=== PATIENT | male | born 1975 | race Caucasian/White ===

== ENCOUNTER 2017-12-24 07:00 | Emergency (ER) | payer MEDICARE, OTHER | END 2017-12-24 12:00 | disposition home or self-care (01) | LOC: E/R 07:00 | DX: L97.529 Non-pressure chronic ulcer of other part of left foot with unspecified severity (principal); R40.2142 Coma scale, eyes open, spontaneous, at arrival to emergency department; R40.2362 Coma scale, best motor response, obeys commands, at arrival to emergency department; R40.2252 Coma scale, best verbal response, oriented, at arrival to emergency department; F17.210 Nicotine dependence, cigarettes, uncomplicated | CPT/HCPCS: 73630; 73630-LT; 99283-25 ==

== ENCOUNTER 2018-05-27 19:37 | Inpatient (IN) | payer MEDICARE, OTHER ==
[2018-05-27] MEDS: LORAZEPAM 2 MG INJ IV (20:14)
[2018-05-27] MEDS: CEFEPIME 2GM/50 ML (PMX) 50 ML IVPB (20:17)
[2018-05-27] MEDS: SODIUM CHLORIDE 0.9% 1L BAG IV* (20:19)
[2018-05-27 20:57] LABS: ADD MAN DIFF? NO
[2018-05-27 21:04] LABS: ABNORMAL IP MESSAGE 1; BASOPHILS % 0.1 % (0.0-2.0); EOSINOPHILS # 0.1 10^3/ul (0.0-0.5); HEMATOCRIT 26.3 % (42.0-52.0); HEMOGLOBIN 7.6 g/dl (14.0-18.0); LYMPHOCYTES # 0.9 10^3/ul (0.8-2.9); LYMPHOCYTES % 12.2 % (15.0-51.0); MEAN CORPUSCULAR HGB CONC 28.9 g/dl (32.0-37.0); MEAN CORPUSCULAR VOLUME 65.9 fl (82.0-101.0); MONOCYTE # 0.8 10^3/ul (0.3-0.9); MONOCYTES % 11.1 % (0.0-11.0); NEUTROPHIL # 5.2 10^3/ul (1.6-7.5); NEUTROPHILS % 74.2 % (39.0-77.0); PLATELET COUNT 391 10^3/UL (140-415); POSITIVE DIFF @See below; RED BLOOD COUNT 3.99 10^6/ul (4.70-6.10); RED CELL DISTRIBUTION WIDTH 21.9 % (11.5-14.5)
[2018-05-27 21:23] LABS: INR 1.29; PROTIME 16.2 Sec (11.9-14.9); PT RATIO 1.3
[2018-05-27 21:25] LABS: ANION GAP 6 (5-13); BLOOD UREA NITROGEN 10 mg/dl (7-20); CALCIUM 8.5 mg/dl (8.4-10.2); CARBON DIOXIDE 24 mmol/L (21-31); CHLORIDE 109 mmol/L (97-110); CREATININE 0.59 mg/dl (0.61-1.24); Estimated GFR > 60 mL/min (>60); GLUCOSE 124 mg/dl (70-220); POTASSIUM 3.5 mmol/L (3.5-5.1); SODIUM 139 mmol/L (135-144)
[2018-05-27 21:31] LABS: PARTIAL THROMBOPLASTIN TIME 36.6 Sec (23.0-35.0)
[2018-05-27 21:37] LABS: C-REACTIVE PROTEIN 17.6 mg/dl (0.0-0.9)
[2018-05-27] MEDS: VANCOMYCIN 1 GM (PMX) 250 ML IVPB (21:41)
[2018-05-27 22:25] LABS: ERYTHROCYTE SEDIMENTATION RATE 94 mm/Hr (0-15)
[2018-05-27] MEDS ORDERED: ACETAMINOPHEN 325 MG TAB PO ×2 (22:30→23:30)
[2018-05-27] MEDS ORDERED: ONDANSETRON 4 MG INJ IV (22:30)
[2018-05-27 23:03] LABS: LACTIC ACID 0.6 mmol/L (0.5-2.0)
[2018-05-27] MEDS: GABAPENTIN 400 MG CAP PO (23:30)
[2018-05-27] MEDS ORDERED: HYDROCODONE/APAP (5/325) TAB PO ×2 (23:30)
[2018-05-27] MEDS ORDERED: NACL 0.9% 3 ML SYG IV (23:30)
[2018-05-28 02:16] LABS: LACTIC ACID 0.9 mmol/L (0.5-2.0)
[2018-05-28 06:22] LABS: ADD MAN DIFF? NO
[2018-05-28 06:28] LABS: WHITE BLOOD COUNT 6.2 10^3/ul (4.8-10.8)
[2018-05-28 06:28] LABS: ABNORMAL IP MESSAGE 1; BASOPHILS % 0.2 % (0.0-2.0); EOSINOPHILS # 0.3 10^3/ul (0.0-0.5); EOSINOPHILS % 5.1 % (0.0-7.0); HEMATOCRIT 27.3 % (42.0-52.0); HEMOGLOBIN 7.9 g/dl (14.0-18.0); LYMPHOCYTES # 0.9 10^3/ul (0.8-2.9); LYMPHOCYTES % 13.9 % (15.0-51.0); MEAN CORPUSCULAR HEMOGLOBIN 19.4 pg (29.0-33.0); MEAN CORPUSCULAR HGB CONC 28.9 g/dl (32.0-37.0); MEAN CORPUSCULAR VOLUME 67.1 fl (82.0-101.0); MEAN PLATELET VOLUME 8.3 fl (7.4-10.4); MONOCYTE # 0.7 10^3/ul (0.3-0.9); MONOCYTES % 11.1 % (0.0-11.0); NEUTROPHIL # 4.3 10^3/ul (1.6-7.5); NEUTROPHILS % 69.4 % (39.0-77.0); PLATELET COUNT 365 10^3/UL (140-415); POSITIVE DIFF @See below; RED BLOOD COUNT 4.07 10^6/ul (4.70-6.10); RED CELL DISTRIBUTION WIDTH 22.1 % (11.5-14.5)
[2018-05-28 06:58] LABS: IRON 11 ug/dl (35-150)
[2018-05-28 06:58] LABS: HEMOGLOBIN A1C 5.6 % (0-5.9)
[2018-05-28] MEDS: PANTOPRAZOLE (EC) 40 MG TAB PO (07:00)
[2018-05-28] MEDS ORDERED: NON-FORMULARY/PATIENT OWN MED (Omeprazole* 20 MG) PO (07:00)
[2018-05-28 07:08] LABS: % IRON SATURATION 5 % SAT (22-52); TOTAL IRON BINDING CAPACITY 217 ug/dl (241-421)
[2018-05-28 07:14] LABS: ALANINE AMINOTRANSFERASE 7 IU/L (13-69); ALBUMIN 2.8 g/dl (3.3-4.9); ALBUMIN/GLOBULIN RATIO 0.62; ALKALINE PHOSPHATASE 79 IU/L (42-121); ANION GAP 8 (5-13); ASPARTATE AMINO TRANSFERASE 14 IU/L (15-46); BILIRUBIN,INDIRECT 0.3 mg/dl (0-1.1); BILIRUBIN,TOTAL 0.3 mg/dl (0.2-1.3); BLOOD UREA NITROGEN 7 mg/dl (7-20); CALCIUM 8.6 mg/dl (8.4-10.2); CARBON DIOXIDE 24 mmol/L (21-31); CHLORIDE 110 mmol/L (97-110); CHOL/HDL RATIO 4.8 RATIO; CHOLESTEROL 87 mg/dl (100-200); Estimated GFR > 60 mL/min (>60); GLUCOSE 85 mg/dl (70-220); HDL CHOLESTEROL 18 mg/dl (27-67); LDL CHOLESTEROL,CALCULATED 58 mg/dl; MAGNESIUM 1.8 mg/dl (1.7-2.5); PHOSPHORUS 3.6 mg/dl (2.5-4.9); POTASSIUM 3.3 mmol/L (3.5-5.1); SODIUM 142 mmol/L (135-144); TOTAL PROTEIN 7.3 g/dl (6.1-8.1); TRIGLYCERIDES 53 mg/dl (0-149)
[2018-05-28 07:33] LABS: FERRITIN 75.2 ng/ml (17.9-464.0)
[2018-05-28] MEDS: GABAPENTIN 400 MG CAP PO ×2 (09:00→20:29)
[2018-05-28] MEDS: POTASSIUM CHLORIDE (SR) 20 MEQ TAB PO (09:38)
[2018-05-28] MEDS ORDERED: VANCOMYCIN IV PER PHARMACY XX (10:00)
[2018-05-28] MEDS: HYDROmorphONE 2 MG/ML SYG IV ×2 (13:14→20:29)
[2018-05-28] MEDS: DIPHENHYDRAMINE 50 MG INJ IV ×2 (13:14→22:09)
[2018-05-28] MEDS: RIVAROXABAN 10 MG TABLET PO (13:14)
[2018-05-28] MEDS: PIPER-TAZO 3.375 GM IV (PMX) 100 ML IVPB ×2 (14:04→20:28)
[2018-05-28] MEDS: LORAZEPAM 2 MG INJ IV (15:17)
[2018-05-28] MEDS: VANCOMYCIN 750 MG (PMX) 250 ML IVPB (21:58)
[2018-05-29] MEDS: LORAZEPAM 2 MG INJ IV (00:03)
[2018-05-29] MEDS: VANCOMYCIN 750 MG (PMX) 250 ML IVPB ×3 (00:05→15:50)
[2018-05-29] MEDS: PIPER-TAZO 3.375 GM IV (PMX) 100 ML IVPB ×5 (02:46→23:44)
[2018-05-29] MEDS: HYDROmorphONE 2 MG/ML SYG IV ×6 (02:47→23:47)
[2018-05-29] MEDS: PANTOPRAZOLE (EC) 40 MG TAB PO (06:28)
[2018-05-29] MEDS: DIPHENHYDRAMINE 50 MG INJ IV ×3 (07:36→20:29)
[2018-05-29] MEDS: ONDANSETRON 4 MG INJ IV ×2 (07:36→13:52)
[2018-05-29] MEDS: GABAPENTIN 400 MG CAP PO ×2 (07:53→20:30)
[2018-05-29 08:58] LABS: BLOOD UREA NITROGEN 7 mg/dl (7-20)
[2018-05-29 08:58] LABS: CREATININE 0.49 mg/dl (0.61-1.24)
[2018-05-29 09:04] LABS: VANCOMYCIN,TROUGH 8.6 ug/ml (10.0-20.0)
[2018-05-29] MEDS: RIVAROXABAN 10 MG TABLET PO (10:54)
[2018-05-29] MEDS: RISPERIDONE 2 MG TAB PO ×2 (12:00→20:30)
[2018-05-30] MEDS: VANCOMYCIN 750 MG (PMX) 250 ML IVPB ×3 (00:47→16:58)
[2018-05-30] MEDS: DIPHENHYDRAMINE 50 MG INJ IV ×4 (03:02→20:57)
[2018-05-30] MEDS: HYDROmorphONE 2 MG/ML SYG IV ×7 (03:32→23:34)
[2018-05-30] MEDS: PIPER-TAZO 3.375 GM IV (PMX) 100 ML IVPB ×4 (06:08→23:35)
[2018-05-30] MEDS: PANTOPRAZOLE (EC) 40 MG TAB PO (06:10)
[2018-05-30 08:08] LABS: BLOOD UREA NITROGEN 7 mg/dl (7-20)
[2018-05-30 08:08] LABS: CREATININE 0.62 mg/dl (0.61-1.24)
[2018-05-30 08:11] LABS: VANCOMYCIN,TROUGH 11.9 ug/ml (10.0-20.0)
[2018-05-30] MEDS: GABAPENTIN 400 MG CAP PO ×2 (09:00→20:56)
[2018-05-30] MEDS: RISPERIDONE 2 MG TAB PO ×2 (09:00→20:56)
[2018-05-30] MEDS: RIVAROXABAN 10 MG TABLET PO (09:13)
[2018-05-30] MEDS: DAKINS 0.0125%(1/40) 473 ML SOLUTION TP (12:39)
[2018-05-30] MEDS: POTASSIUM CHLORIDE (SR) 20 MEQ TAB PO (23:35)
[2018-05-31] MEDS: VANCOMYCIN 750 MG (PMX) 250 ML IVPB ×3 (01:27→16:15)
[2018-05-31] MEDS: DIPHENHYDRAMINE 50 MG INJ IV ×4 (03:02→21:01)
[2018-05-31] MEDS: HYDROmorphONE 2 MG/ML SYG IV ×5 (03:29→20:07)
[2018-05-31] MEDS: PIPER-TAZO 3.375 GM IV (PMX) 100 ML IVPB ×3 (07:38→18:45)
[2018-05-31 07:47] LABS: ANION GAP 5 (5-13); BLOOD UREA NITROGEN 14 mg/dl (7-20); CALCIUM 8.9 mg/dl (8.4-10.2); CARBON DIOXIDE 27 mmol/L (21-31); CHLORIDE 107 mmol/L (97-110); CREATININE 0.54 mg/dl (0.61-1.24); Estimated GFR > 60 mL/min (>60); GLUCOSE 95 mg/dl (70-220); POTASSIUM 4.5 mmol/L (3.5-5.1); SODIUM 139 mmol/L (135-144)
[2018-05-31] MEDS: RISPERIDONE 2 MG TAB PO ×2 (09:00→21:00)
[2018-05-31] MEDS: GABAPENTIN 400 MG CAP PO ×2 (09:06→20:06)
[2018-05-31] MEDS: RIVAROXABAN 10 MG TABLET PO (09:06)
[2018-05-31] MEDS: PANTOPRAZOLE (EC) 40 MG TAB PO (09:07)
[2018-05-31] MEDS: DAKINS 0.0125%(1/40) 473 ML SOLUTION TP (10:00)
[2018-06-01] MEDS: HYDROmorphONE 2 MG/ML SYG IV ×7 (00:26→19:59)
[2018-06-01] MEDS: PIPER-TAZO 3.375 GM IV (PMX) 100 ML IVPB ×5 (00:27→23:27)
[2018-06-01] MEDS: VANCOMYCIN 750 MG (PMX) 250 ML IVPB ×3 (01:17→16:07)
[2018-06-01] MEDS: DIPHENHYDRAMINE 50 MG INJ IV ×4 (02:53→21:01)
[2018-06-01] MEDS: PANTOPRAZOLE (EC) 40 MG TAB PO (06:30)
[2018-06-01] MEDS: RIVAROXABAN 10 MG TABLET PO (08:00)
[2018-06-01] MEDS: GABAPENTIN 400 MG CAP PO ×2 (08:00→20:06)
[2018-06-01] MEDS: RISPERIDONE 2 MG TAB PO ×2 (08:01→20:09)
[2018-06-01] MEDS: DAKINS 0.0125%(1/40) 473 ML SOLUTION TP (09:54)
[2018-06-01] MEDS: HALOPERIDOL 5 MG INJ IM (16:01)
[2018-06-01 23:44] LABS: VANCOMYCIN,TROUGH 14.5 ug/ml (10.0-20.0)
[2018-06-02] MEDS: HYDROmorphONE 2 MG/ML SYG IV ×7 (00:15→23:59)
[2018-06-02] MEDS: VANCOMYCIN 750 MG (PMX) 250 ML IVPB ×4 (00:19→23:59)
[2018-06-02] MEDS: DIPHENHYDRAMINE 50 MG INJ IV ×4 (03:03→21:35)
[2018-06-02] MEDS: PIPER-TAZO 3.375 GM IV (PMX) 100 ML IVPB ×2 (06:09→12:06)
[2018-06-02] MEDS: PANTOPRAZOLE (EC) 40 MG TAB PO (06:09)
[2018-06-02 07:36] LABS: CREATININE 0.69 mg/dl (0.61-1.24)
[2018-06-02 07:36] LABS: BLOOD UREA NITROGEN 17 mg/dl (7-20)
[2018-06-02] MEDS: RIVAROXABAN 10 MG TABLET PO (08:08)
[2018-06-02] MEDS: GABAPENTIN 400 MG CAP PO ×2 (08:08→20:10)
[2018-06-02] MEDS: DAKINS 0.0125%(1/40) 473 ML SOLUTION TP (08:18)
[2018-06-02] MEDS: RISPERIDONE 2 MG TAB PO ×2 (09:00→20:11)
[2018-06-02] MEDS ORDERED: AMIKACIN IV PER PHARMACY XX (15:00)
[2018-06-02] MEDS: HYDROmorphONE 1 MG/ML SYG IV (15:01)
[2018-06-02] MEDS: AMIKACIN 900 MG in SOD CHLORIDE 0.9% 100 ML IVPB (18:11)
[2018-06-03] MEDS: DIPHENHYDRAMINE 50 MG INJ IV ×4 (03:32→21:42)
[2018-06-03] MEDS: HYDROmorphONE 2 MG/ML SYG IV ×5 (04:00→21:37)
[2018-06-03] MEDS: PANTOPRAZOLE (EC) 40 MG TAB PO (06:18)
[2018-06-03] MEDS: VANCOMYCIN 750 MG (PMX) 250 ML IVPB ×3 (08:00→15:51)
[2018-06-03] MEDS: GABAPENTIN 400 MG CAP PO ×2 (08:02→21:33)
[2018-06-03] MEDS: RIVAROXABAN 10 MG TABLET PO (08:02)
[2018-06-03] MEDS: QUETIAPINE 25 MG TAB PO ×2 (09:00→21:33)
[2018-06-03] MEDS: DAKINS 0.0125%(1/40) 473 ML SOLUTION TP (09:34)
[2018-06-03] MEDS: LIDOCAINE 1% (MPF) 5 ML VIAL SC ×2 (11:00→12:43)
[2018-06-03] MEDS: AMIKACIN 900 MG in SOD CHLORIDE 0.9% 100 ML IVPB (18:00)
[2018-06-03] MEDS ORDERED: VANCOMYCIN 750 MG (PMX) 250 ML IVPB (21:00)
[2018-06-03] MEDS: VANCOMYCIN HCL 1.25 GM in SOD CHLORIDE 0.9% 250 ML IVPB (21:37)
[2018-06-04] MEDS: HYDROmorphONE 2 MG/ML SYG IV ×4 (01:26→13:29)
[2018-06-04] MEDS: DIPHENHYDRAMINE 50 MG INJ IV ×3 (03:44→15:24)
[2018-06-04] MEDS: PANTOPRAZOLE (EC) 40 MG TAB PO (07:00)
[2018-06-04] MEDS: DAKINS 0.0125%(1/40) 473 ML SOLUTION TP (09:00)
[2018-06-04] MEDS: QUETIAPINE 25 MG TAB PO (09:00)
[2018-06-04] MEDS: RIVAROXABAN 10 MG TABLET PO (09:30)
[2018-06-04] MEDS: GABAPENTIN 400 MG CAP PO (09:30)
[2018-06-04] MEDS: VANCOMYCIN HCL 1.25 GM in SOD CHLORIDE 0.9% 250 ML IVPB (09:30)
[2018-06-04] MEDS ORDERED: AMIKACIN 900 MG in SOD CHLORIDE 0.9% 250 ML IVPB ×2 (12:48→18:00)
== END 2018-06-04 16:30 | DRG 503 ==
LOC: E/R 19:37 → 5EC 22:08
PROC: 0QBM0ZZ Excision of Left Tarsal, Open Approach (ICD-10-PCS; principal; 2018-06-02)
PROC: 05HY33Z Insertion of Infusion Device into Upper Vein, Percutaneous Approach (ICD-10-PCS; 2018-06-03)
DX: M86.8X7 Other osteomyelitis, ankle and foot (principal); L89.624 Pressure ulcer of left heel, stage 4; G82.20 Paraplegia, unspecified; L89.612 Pressure ulcer of right heel, stage 2; F20.9 Schizophrenia, unspecified; D50.9 Iron deficiency anemia, unspecified; E87.6 Hypokalemia; F29 Unspecified psychosis not due to a substance or known physiological condition; Z72.0 Tobacco use; M19.90 Unspecified osteoarthritis, unspecified site; M85.80 Other specified disorders of bone density and structure, unspecified site; D63.8 Anemia in other chronic diseases classified elsewhere
CPT/HCPCS: 36415; 73630-LT; 76937; 80048; 80053; 80061; 80150; 80202; 82270; 82565; 82728; 83036; 83540; 83605; 83735; 84100; 84520; 85025; 85610; 85651; 85730; 86140; 87040-91; 87070; 93005; 96374; 96375; 99285-25

== ENCOUNTER 2018-06-12 07:04 | Emergency (ER) | payer MEDICARE, OTHER | END 2018-06-12 17:07 | disposition home or self-care (01) | LOC: E/R 07:04 | DX: M79.672 Pain in left foot (principal); Z76.5 Malingerer [conscious simulation] | CPT/HCPCS: 99283 ==

== ENCOUNTER 2018-06-12 18:53 | Emergency (ER) | payer MEDICARE, OTHER | END 2018-06-12 19:00 | disposition home or self-care (01) | LOC: E/R 18:53 | DX: Z76.5 Malingerer [conscious simulation] (principal); Z87.891 Personal history of nicotine dependence | CPT/HCPCS: 99283 ==

== ENCOUNTER 2018-09-14 22:28 | Emergency (ER) | payer MEDICARE, OTHER ==
[2018-09-15] MEDS ORDERED: KETOROLAC 30 MG INJ IM (00:04)
== END 2018-09-15 00:50 | disposition left against medical advice (07) ==
LOC: FTE 09-15 00:50
DX: Z53.21 Procedure and treatment not carried out due to patient leaving prior to being seen by health care provider (principal)
CPT/HCPCS: J1885